=== PATIENT | female | born 1985 | race Two or more races ===

== ENCOUNTER 2017-07-23 20:29 | Emergency (ER) | payer BC, OTHER ==
[~2017-07-23] VITALS: Ht 157.5 cm; Wt 63.5 kg
[~2017-07-23 20:29] MED LIST: ACETAMINOPHEN-1 EAC1 ORAL; AFRIN30 ML NASAL; ALBUTEROL SULF8.5 GM INH; ALBUTEROL2.5 MG/3 M HHN; AMOXICILLIN500 MG ORAL; ATIVAN0.5 MG ORAL; AZITHROMYCIN250 MG ORAL; BENADRYL25 MG PO; CIPROFLOXACIN500 M2 ORAL; IBUPROFEN600 MG ORAL; IBUPROFEN600 MG PO; MAALOX MAXIMUM355 M1 PO; MECLIZINE HCL25 MG ORAL; METRONIDAZOLE500 MG ORAL; NKM; NORCO 5-325 TA1 EACH ORAL; NORCO 7.5-3251 EACH ORAL; OMEPRAZOLE20 M2 ORAL; PERCOCET 5-3251 EACH PO; PHENERGAN25 M1 ORAL; PRENATAL VITAM1 EAC4 PO; TYLENOL325 MG ORAL; VICODIN 5-5001 EACH PO; ZOFRAN ODT4 MG ORAL
[2017-07-23] MEDS ORDERED: EC-NAPROSYN500 MG PO (20:38)
[2017-07-23 20:40] VITALS: BP 116/71
--- NOTE | 2017-07-23 20:50 | Emergency Room Report ---
History of Present Illness General Chief Complaint: Abdominal Pain Source: Patient (Emily Webb M.D.) Present Illness HPI 31 yo female with no sig pmhx p/w abdominal pain 2 days Patient states pain localized to epigastric area, non radiating, burning in nature, intermittent. No relieving or exacerbating factors. Severity is 6/10. Pt reports n/v, 3 episodes of nbnb vomiting, no diarrhea Patient states that she thinks about this there was a little streak of blood that she coughed up today. No black or bloody stools. last bm this am was normal no melena Patient states that she has been taking naproxen twice a day for 3 weeks. Denies fever, chills. Patient states that she has had and tummy tuck surgeries No hx of endoscopies/colonoscopies. (Emily Webb M.D.) Allergies: Coded Allergies: KETOROLAC (Unverified Allergy, Mild, 05/18/15) BODY RASHH Patient History Past Medical History: see triage record Past Surgical History: none Pertinent Family History: none Last Menstrual Period: 4 DAYS AGO Now: No Reviewed Nursing Documentation: PMH: Agreed, PSxH: Agreed (Emily Webb M.D. ) Nursing Documentation-PMH Hx Cardiac Problems: No - vertigo (Emily Webb M.D.) Review of Systems All Other Systems: negative except mentioned in HPI (Emily Webb M.D.) Physical Exam Vital Signs Date Time Temp Pulse Resp B/P (MAP) Pulse Ox O2 Delivery O2 Flow Rate FiO2 07/23/17 20:32 98.1 91 18 122/83 98 Room Air Sp02 EP Interpretation: reviewed, normal General Appearance: alert, GCS 15, non-toxic, other - Young female, appears to be in pain, however nontoxic appearing. Conversing appropriately at bedside Head: normocephalic, atraumatic Eyes: bilateral eye normal inspection, bilateral eye PERRL, bilateral eye EOMI ENT: normal ENT inspection, normal pharynx, normal voice, moist mucus membranes Neck: normal inspection, full range of motion, supple Respiratory: normal inspection, lungs clear, normal breath sounds, no respiratory distress, no retraction, no wheezing, speaking full sentences, chest symmetrical Cardiovascular #1: normal inspection, regular rate, rhythm, no edema, normal capillary refill Cardiovascular #2: 2+ radial (R), 2+ radial (L) Gastrointestinal: soft, non-distended, no guarding, other - Epigastric tenderness, no guarding or rebound, nontender all other quadrants, Horta's sign is negative Musculoskeletal: normal inspection, back normal, normal range of motion, non- tender Neurologic: normal inspection, alert, oriented x3, responsive, motor strength/ tone normal, sensory intact, normal gait, speech normal Psychiatric: normal inspection, judgement/insight normal, memory normal Skin: normal inspection, normal color, no rash, warm/dry, well hydrated, normal turgor (Emily Webb M.D.) Medical Decision Making Diagnostic Impression: Primary Impression: Epigastric abdominal pain Additional Impression: Nausea & vomiting Qualified Codes: R11.2 - Nausea with vomiting, unspecified ER Course 31 yo female with abdominal pain Differential Diagnosis: Gastritis, pud, gastroenteritis, cholecystitis, appendicitis, UTI/pyelo At this time abdomen is soft nontender, not likely to have acute intra- abdominal surgical pathology, will hold CT for now. Plan: Basic labs, ua Pepcid, maalox, pain control, IVF upright CXR ER course: Pt given meds with mild improvement of symptoms CXR neg for free air Signed out patient to Dr. Nieves 31 yo F with epigastric pain, 3 wks of naproxen use -pending symptom control -if in 2 hours no control of sx, admit for intractable pain, n/v Please note that this Emergency Department Report was dictated using [employer] technology software, occasionally this can lead to erroneous entry secondary to interpretation by the dictation equipment (Emily Webb M.D.) ER Course Received signout from Dr Webb at 1130pm Patient feels better Abd non-tender on serial exam labs reviewed: No leuks. No metabolic abnormalities Likely gastritis from Naproxen use Received antacids, zofran, IVF DC with pepcid PMD followup Return to ER for worsening pain (VALERIE NIEVES M.D.) Rhythm Strip Diag. Results EP Interpretation: yes Rate: 65 Rhythm: NSR, no PVC's, no ectopy (Emily Webb M.D.) Chest X-Ray Diagnostic Results Chest X-Ray Diagnostic Results : Chest X-Ray Ordered: Yes # of Views/Limited/Complete: 1 View Indication: Other Interpretation: no consolidation, no effusion, no pneumothorax, no acute cardiopulmonary disease, other - no free air under diaphragm Impression: No acute disease Interpreting ER Provider: Electronically signed by Emily Webb MD (Emily Webb M.D.) Last Vital Signs Date Time Temp Pulse Resp B/P (MAP) Pulse Ox O2 Delivery O2 Flow Rate FiO2 07/23/17 20:32 98.1 91 18 122/83 98 Room Air (Emily Webb M.D.) Status: improved (VALERIE NIEVES M.D.) Disposition: HOME, SELF-CARE Scripts Famotidine (PEPCID) 20 Mg Tablet 20 MG ORAL BID for 7 Days, #14 TAB 0 Refills Prov: VALERIE NIEVES M.D. 07/23/17 Emily Webb M.D. Jul 23, 2017 20:50 VALERIE NIEVES M.D. Jul 23, 2017 23:38
[2017-07-23] MEDS ORDERED: Famotidine 20 MG/ 2ML VIAL IVP ONE (21:00)
[2017-07-23] MEDS ORDERED: Lidocaine 2% Visc 15ml soln ORAL ONE (21:00)
[2017-07-23] MEDS ORDERED: Mylanta II UD 30ml ORAL ONE (21:00)
[2017-07-23] MEDS ORDERED: Dicyclomine HCl 10mg/5ml oral soln ORAL ONE (21:00)
[2017-07-23 21:18] LABS: BASOPHILS % (AUTO) 1.5 % (0.0-2.0); EOSINOPHILS % (AUTO) 1.5 % (0.0-3.0); LYMPHOCYTES % (AUTO) 40.6 % (20.0-45.0); MEAN CORPUSCULAR HEMOGLOBIN 33.1 PG (27.0-31.0); MEAN CORPUSCULAR HGB CONC 34.8 G/DL (32.0-36.0); MEAN CORPUSCULAR VOLUME 95 FL (80-99); MEAN PLATELET VOLUME 7.7 FL (6.5-10.1); MONOCYTES % (AUTO) 7.8 % (1.0-10.0); NEUTROPHILS % (AUTO) 48.7 % (45.0-75.0); PLATELET COUNT 221 K/UL (150-450); WHITE BLOOD COUNT 5.2 K/UL (4.8-10.8)
[2017-07-23 21:50] LABS: ALANINE AMINOTRANSFERASE 71 U/L (3-33); ALBUMIN/GLOBULIN RATIO 1.3 (1.0-2.7); ANION GAP 14 (5-15); ASPARTATE AMINO TRANSFERASE 27 U/L (5-40); CALCIUM 9.2 mg/dL (8.6-10.2); CARBON DIOXIDE 23 mEQ/L (20-30); CHLORIDE 100 mEQ/L (98-107); CREATININE 0.8 mg/dL (0.5-0.9); GLOMERULAR FILTRATION RATE > 60 mL/min (>60); HEMOLYSIS 5; LIPASE 16 U/L (< 60); POTASSIUM 3.6 mEQ/L (3.4-4.9); SODIUM 137 mEQ/L (135-145); TOTAL PROTEIN 7.5 g/dL (6.6-8.7)
[2017-07-23 22:30] VITALS: BP 125/76
[2017-07-23] MEDS ORDERED: PEPCID20 MG ORAL (22:59)
[2017-07-24] VITALS: BP 120/74
[2017-07-24 00:05] VITALS: BP 120/74
--- NOTE | 2017-07-24 11:54 | Diagnostic Imaging Report ---
Indication: PAIN Technique: One view of the chest Comparison: 06/09/2013 Findings: Lungs and pleural spaces are clear. Heart size is normal. No significant change Impression: No acute process This agrees with the preliminary interpretation provided overnight by [facility] teleradiology service. This agrees with the preliminary interpretation provided by the emergency room physician
== END 2017-07-24 00:05 | disposition home or self-care (01) ==
LOC: EMR 21:06
DX: R10.13 Epigastric pain (principal); R11.2 Nausea with vomiting, unspecified; Z88.6 Allergy status to analgesic agent
CPT/HCPCS: 36415; 71010; 80053; 83690; 85025; 96361; 96374; 96375; 99284; J2405; S0028